=== PATIENT | female | born 1970 | race African-American/Black ===

== ENCOUNTER 2017-04-29 14:54 | Emergency (ER) | payer MEDICAID ==
[~2017-04-29] VITALS: Ht 152.4 cm; Wt 89.4 kg
[2017-04-29 15:24] VITALS: BP 129/86
== END 2017-04-29 17:06 | disposition home or self-care (01) ==
LOC: ER 14:54
DX: S90.31XA Contusion of right foot, initial encounter (principal); F17.210 Nicotine dependence, cigarettes, uncomplicated; I10 Essential (primary) hypertension; W20.8XXA Other cause of strike by thrown, projected or falling object, initial encounter; Y93.89 Activity, other specified; Y99.8 Other external cause status; Y92.89 Other specified places as the place of occurrence of the external cause
CPT/HCPCS: 73630

== ENCOUNTER 2017-09-17 07:40 | Emergency (ER) | payer MEDICAID ==
[~2017-09-17] VITALS: Ht 149.9 cm; Wt 88.9 kg
[2017-09-17 08:05] VITALS: BP 146/97
[2017-09-17] MEDS ORDERED: KETOROLAC TROMETH 60MG/2ML VIAL IM ONE (09:00)
== END 2017-09-17 09:17 | disposition home or self-care (01) ==
LOC: ER 07:40
DX: G89.29 Other chronic pain (principal); M54.42 Lumbago with sciatica, left side; I10 Essential (primary) hypertension; F17.210 Nicotine dependence, cigarettes, uncomplicated
CPT/HCPCS: 96372; 99283; J1885

== ENCOUNTER 2019-06-26 13:42 | Emergency (ER) | payer MEDICAID ==
[~2019-06-26] VITALS: Ht 149.9 cm; Wt 89.8 kg
[2019-06-26] MEDS ORDERED: IBUPROFEN 600 MG TAB PO ONE (18:45)
[2019-06-26 18:46] VITALS: BP 150/95
== END 2019-06-26 19:00 | disposition home or self-care (01) ==
LOC: ER 13:42
DX: S50.11XA Contusion of right forearm, initial encounter (principal); I10 Essential (primary) hypertension; F17.210 Nicotine dependence, cigarettes, uncomplicated; W22.8XXA Striking against or struck by other objects, initial encounter; Y93.89 Activity, other specified; Y99.8 Other external cause status; Y92.89 Other specified places as the place of occurrence of the external cause
CPT/HCPCS: 73090